=== PATIENT | male | born 1965 | race Caucasian/White ===

== ENCOUNTER 2020-08-22 02:17 | Emergency (ER) | payer MEDICAID ==
[~2020-08-22] VITALS: Ht 182.9 cm; Wt 96.0 kg
[2020-08-22 02:46] VITALS: BP 158/104
== END 2020-08-22 02:48 ==
LOC: ER 02:18
DX: Z00.8 Encounter for other general examination (principal); I10 Essential (primary) hypertension; F15.90 Other stimulant use, unspecified, uncomplicated; I25.10 Atherosclerotic heart disease of native coronary artery without angina pectoris; I25.2 Old myocardial infarction; F17.200 Nicotine dependence, unspecified, uncomplicated; Z98.890 Other specified postprocedural states
CPT/HCPCS: 99283